=== PATIENT | male | born 1990 | race Caucasian/White ===

== ENCOUNTER 2020-12-29 21:11 | Emergency (ER) | payer MEDICAID ==
[~2020-12-29] VITALS: Ht 180.3 cm; Wt 61.2 kg
[2020-12-29 21:12] VITALS: BP_SYST 153
--- NOTE | 2020-12-29 21:12 | NUR ---
Placed in room 1 . Placed on motorcycle builder, blood pressure machine and pulse oximeter. To gown for exam. Side rails up.
[2020-12-29] MEDS ORDERED: NACL 0.9% 1,000 ML IV ONE ×2 (21:15→22:45)
--- NOTE | 2020-12-29 21:15 | NUR ---
ER DR. GIRALDO AT THE BEDSIDE EXAMINING PT
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
--- NOTE | 2020-12-29 21:19 | NUR ---
Patient transported to radiology via GURNEY, accompanied by STAFF.
[2020-12-29] MEDS ORDERED: DIPH-TET-PERTUS Vaccine 0.5 ML VIAL (ADACEL) I.M. ONE (21:30)
[2020-12-29 21:58] LABS: BASOPHILS # (AUTO) 0.1 K/uL (0.0-0.2); HEMOGLOBIN 14.2 g/dL (14.0-18.0)
--- NOTE | 2020-12-29 22:00 | NUR ---
PT RESTING IN BED, NO S/SX OF DISTRESS, V/S STABLE
[2020-12-29 22:05] LABS: BASOPHILS % (AUTO) 1.3 % (0.0-2.0); EOSINOPHILS # (AUTO) 0.3 K/uL (0.0-0.4); EOSINOPHILS % (AUTO) 2.5 % (0.0-4.0); HEMATOCRIT 43.1 % (36-54); LYMPHOCYTES # (AUTO) 3.6 K/uL (1.0-5.5); LYMPHOCYTES % (AUTO) 31.4 % (20.5-51.5); MEAN CORPUSCULAR HEMOGLOBIN 27 pg (27-31); MEAN CORPUSCULAR HGB CONC 33 % (32-36); MEAN CORPUSCULAR VOLUME 83 fL (79.0-98.0); MONOCYTES % (AUTO) 8.5 % (1.7-9.3); NEUTROPHILS # (AUTO) 6.5 K/uL (1.8-7.7); NEUTROPHILS % (AUTO) 56.3 % (40.0-70.0); PLATELET COUNT (AUTO) 242 K/uL (130-430); RED BLOOD CELL COUNT(AUTO) 5.18 MIL/uL (4.2-6.2); WHITE BLOOD COUNT (AUTO) 11.6 K/uL (4.8-10.8)
[2020-12-29 22:28] LABS: ALANINE AMINOTRANSFERASE 34 U/L (12-78); ALBUMIN 3.9 g/dL (3.4-4.8); ANION GAP 13 (5-15); ASPARTATE AMINOTRANSFERASE 26 U/L (10-37); CALCIUM 8.8 mg/dL (8.4-11.0); CHLORIDE 103 mmol/L (98-107); FREE T4 (FREE THYROXINE) 0.8 ng/dl (0.8-1.5); GLUCOSE 84 mg/dL (70-99); POTASSIUM 4.2 mmol/L (3.5-5.1); SODIUM SERUM 140 mmol/L (136-145); THYROID STIMULATING HORMONE 4.58 uIu/mL (0.36-3.74); TOTAL BILIRUBIN 0.1 mg/dL (0.0-1.0); UREA NITROGEN, BLOOD 17 mg/dL (8-21)
[2020-12-29 22:31] LABS: ALCOHOL, BLOOD < 3 mg/dL (<10); GFR AFRICAN AMERICAN 114 mL/min (>90)
[2020-12-29 22:47] LABS: BILIRUBIN,URINE NEGATIVE (NEGATIVE); BLOOD, URINE NEGATIVE (NEGATIVE); CLARITY/URINE CLEAR (CLEAR); COLOR,URINE YELLOW (YELLOW); GLUCOSE,URINE NEGATIVE (NEGATIVE); KETONES,URINE NEGATIVE (NEGATIVE); LEUKOCYTE ESTERASE ,URINE NEGATIVE (NEGATIVE); NITRITE, URINE NEGATIVE (NEGATIVE); PH,URINE 6.5 (5.0-8.0); PROTEIN URINE NEGATIVE (NEGATIVE); UROBILINOGEN,URINE 0.2 (0.2-1.0)
[2020-12-29 23:00] LABS: BARBITURATE, URINE NEGATIVE (NEG <=200); BENZODIAZEPINE, URINE NEGATIVE (NEG <=150); CANNABINOID, URINE NEGATIVE (NEG <=50); COCAINE, URINE NEGATIVE (NEG <=150); METHAMPHETAMINES SCREEN,URINE NEGATIVE (NEG <=500); OPIATE, URINE NEGATIVE (NEG <=100); PHENCYCLIDINE SCREEN,URINE NEGATIVE (NEG <=25); UR TRICYCLIC ANTIDEPRESSANTS NEGATIVE (NEG <=300); URINE AMPHETAMINE NEGATIVE (NEG <=500); URINE METHADONE NEGATIVE (NEG <=200); URINE OXYCODONE SCREEN NEGATIVE (NEG <=100); URINE PROPOXYPHENE SCREEN NEGATIVE (NEG <=300)
--- NOTE | 2020-12-29 23:25 | NUR ---
Dr. Medley bedside for LAC repair procedure, well tolerated
--- NOTE | 2020-12-29 23:35 | NUR ---
SW SISTER SHANELL FOR STATUS UPDATE
[2020-12-30 00:47] VITALS: BP_SYST 139
== END 2020-12-30 00:47 | disposition home or self-care (01) ==
LOC: SED 21:11
DX: S01.81XA Laceration without foreign body of other part of head, initial encounter (principal); S09.90XA Unspecified injury of head, initial encounter; E86.0 Dehydration; F19.10 Other psychoactive substance abuse, uncomplicated; Z79.899 Other long term (current) drug therapy; W18.39XA Other fall on same level, initial encounter; Y93.89 Activity, other specified; Y92.89 Other specified places as the place of occurrence of the external cause; Y99.8 Other external cause status
CPT/HCPCS: 12011; 36415; 70450; 76376; 80053; 80307; 81003; 84439; 84443; 84484; 85025; 90471; 90715; 93005; 96360; 96361; 99285; G0482; J7030

== ENCOUNTER 2022-07-07 07:02 | Emergency (ER) | payer MEDICAID ==
[~2022-07-07] VITALS: Ht 180.3 cm; Wt 63.5 kg
[2022-07-07 07:20] VITALS: BP_SYST 149
--- NOTE | 2022-07-07 07:20 | NUR ---
Patient triaged and placed in waiting room. VSS and patient appears in no acute distress at this time. Accompanied by SELF, awaiting available bed, and MD notified of need for MSE.
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
--- NOTE | 2022-07-07 07:51 | NUR ---
MD DR RETANA AT BEDSIDE
[2022-07-07] MEDS ORDERED: HYDR-500 PO (08:07)
[2022-07-07 08:20] VITALS: BP_SYST 145
--- NOTE | 2022-07-07 08:21 | NUR ---
Patient given written and verbal discharge instructions and verbalizes understanding. ER MD DR RETANA discussed with patient the results and treatment provided. Patient in stable condition. ID arm band removed. Rx of HYDROXYZINE given. Patient educated on pain management and to follow up with PMD. Pain Scale 0/10. Opportunity for questions provided and answered. Medication side effect fact sheet provided.
== END 2022-07-07 08:21 | disposition home or self-care (01) ==
LOC: SED 07:02
DX: R00.2 Palpitations (principal); F41.9 Anxiety disorder, unspecified; R06.02 Shortness of breath; Z79.899 Other long term (current) drug therapy
CPT/HCPCS: 93005; 99283